=== PATIENT | male | born 1940 | race Caucasian/White ===

== ENCOUNTER 2020-09-19 10:26 | Outpatient (CLI) | payer MEDICARE, BC | END 2020-09-19 23:59 | disposition home or self-care (01) | LOC: LAB 10:26 | PROVIDERS: ATTEND Internal Medicine Critical Care Medicine | DX: N18.9 Chronic kidney disease, unspecified (principal); Z53.9 Procedure and treatment not carried out, unspecified reason ==

== ENCOUNTER 2021-09-02 07:31 | Day surgery (SDC) | payer MEDICARE, BC ==
[~2021-09-02] VITALS: Ht 175.3 cm; Wt 100.0 kg
[2021-09-02] MEDS ORDERED: MIDAZolam 1 MG/ML 5ML VIAL ONE (07:37)
[2021-09-02] MEDS ORDERED: fentaNYL/PF 50MCG/1 ML 2ML syringe ONE (07:37)
[2021-09-02] MEDS ORDERED: LIDOcaine Viscous 15ml cup ONE (07:38)
[2021-09-02 07:45] VITALS: BP 118/59
[2021-09-02] MEDS ORDERED: FLUT16SP26 BOTHNARES (08:13)
[2021-09-02] MEDS ORDERED: DIGO125T2 (08:14)
[2021-09-02] MEDS ORDERED: METO25TA6 PO (08:14)
[2021-09-02] MEDS ORDERED: ATOR40TA72 PO (08:17)
[2021-09-02] MEDS ORDERED: APIX5TAB3 PO (08:18)
[2021-09-02] MEDS ORDERED: PHO667C PO (08:19)
[2021-09-02] MEDS ORDERED: HYDR-3686 PO (08:21)
[2021-09-02] MEDS ORDERED: CEPH-585 PO (08:23)
[2021-09-02] MEDS ORDERED: FURO80TA3 (08:30)
[2021-09-02] MEDS ORDERED: HYDR-4069 PO (08:31)
[2021-09-02] MEDS ORDERED: LANTUS SQ ×2 (08:35→08:37)
[2021-09-02] MEDS ORDERED: LORA10TA7 PO (08:37)
[2021-09-02] MEDS ORDERED: DIPH25CA83 PO (08:38)
[2021-09-02] MEDS ORDERED: ATRIN IH (08:40)
[2021-09-02] MEDS ORDERED: HYDR28CR14 TOP (08:41)
[2021-09-02 09:17] VITALS: BP 104/41
[2021-09-02 09:27] VITALS: BP 92/47
[2021-09-02 09:37] VITALS: BP 103/46
[2021-09-02 09:47] VITALS: BP 107/42
== END 2021-09-02 10:00 | disposition home or self-care (01) ==
LOC: GI LAB 07:31
PROVIDERS: ATTEND Internal Medicine Gastroenterology
DX: D50.0 Iron deficiency anemia secondary to blood loss (chronic) (principal); K29.60 Other gastritis without bleeding; K44.9 Diaphragmatic hernia without obstruction or gangrene; K22.89 Other specified disease of esophagus; I48.91 Unspecified atrial fibrillation; J44.9 Chronic obstructive pulmonary disease, unspecified; Z87.891 Personal history of nicotine dependence; Z79.01 Long term (current) use of anticoagulants; Z79.899 Other long term (current) drug therapy
CPT/HCPCS: 43239; G0500; J2250; J3010; J7040; Z7512; 99152; A4620

== ENCOUNTER 2021-09-03 08:27 | Day surgery (SDC) | payer MEDICARE, BC ==
[~2021-09-03] VITALS: Ht 175.3 cm; Wt 100.0 kg
[~2021-09-03 08:27] MED LIST: APIX5TAB3 PO; ATOR40TA72 PO; ATRIN IH; CEPH-585 PO; DIGO125T2; DIPH25CA83 PO; FLUT16SP26 BOTHNARES; FURO80TA3; HYDR-3686 PO; HYDR-4069 PO; HYDR28CR14 TOP; LANTUS SQ; LORA10TA7 PO; METO25TA6 PO; PHO667C PO
[2021-09-03 08:40] VITALS: BP 138/50
[2021-09-03] MEDS ORDERED: MIDAZolam 1 MG/ML 5ML VIAL ONE (08:59)
[2021-09-03] MEDS ORDERED: fentaNYL/PF 50MCG/1 ML 2ML syringe ONE (08:59)
[2021-09-03 10:38] VITALS: BP 124/87
[2021-09-03 10:48] VITALS: BP 139/65
[2021-09-03 10:58] VITALS: BP 120/48
== END 2021-09-03 11:22 | disposition home or self-care (01) ==
LOC: GI LAB 08:27
PROVIDERS: ATTEND Internal Medicine Gastroenterology
DX: D50.9 Iron deficiency anemia, unspecified (principal); D12.2 Benign neoplasm of ascending colon; K57.30 Diverticulosis of large intestine without perforation or abscess without bleeding; K64.8 Other hemorrhoids; I48.91 Unspecified atrial fibrillation; Z79.01 Long term (current) use of anticoagulants; Z87.891 Personal history of nicotine dependence; Z79.899 Other long term (current) drug therapy
CPT/HCPCS: 45385; 82948; 88305; C1773; G0500; J2250; J3010; J7060; Z7512; 45380; 99152; 99153; A4620